=== PATIENT | female | born 1965 | race Caucasian/White ===

== ENCOUNTER 2018-12-28 17:28 | Emergency (ER) | payer BC ==
[2018-12-28] MEDS ORDERED: Bacitracin/Neomycin/Polymyxin B Oint 0.9 GM U/D Packet TOP ONE (17:37)
--- NOTE | 2018-12-28 17:56 | EDM.PDOC ---
ED HPI GENERAL MEDICAL PROBLEM - General Chief Complaint: General Stated Complaint: puncture wound from fish hook Time Seen by Provider: 12/28/18 17:30 Source of Information: Reports: Patient, Family History Limitations: Reports: No Limitations - History of Present Illness INITIAL COMMENTS - FREE TEXT/NARRATIVE: Patient is a 53-year-old who is seen today with chief complaint of poking herself with the fishhook patient states that she was minding her own business fishing when she pulled on the hook off her shirt catching her in the right flank area of her abdomen Onset: Today Duration: Hour(s):, Constant Location: Reports: Abdomen Quality: Reports: Ache Severity: Mild Improves with: Reports: Immobilization Worsens with: Reports: Movement Associated Symptoms: Reports: No Other Symptoms Abdomen Pain Score (Numeric/FACES): 5 - Related Data Allergies Allergy/AdvReac Type Severity Reaction Status Date / Time Latex, Natural Rubber Allergy Hives Verified 12/28/18 17:38 peanut Allergy Anaphylactic Verified 12/28/18 17:38 Shock pollen extracts Allergy itchy Verified 12/28/18 17:38 watery eyes Pet Dander Allergy itchy Uncoded 12/28/18 17:38 watery eyes Home Meds: Home Meds Amoxicillin/Potassium Clav [Augmentin 875-125 Tablet] 1 each PO BID 7 Days #14 tablet 12/28/18 [Rx] Aspirin [Halfprin] 81 mg PO DAILY 12/28/18 [History] Cetirizine [ZyrTEC] 10 mg PO DAILY 12/28/18 [History] Empagliflozin [Jardiance] 25 mg PO DAILY 12/28/18 [History] Insulin Glarg,Human.Rec.Analog [Lantus Solostar] 70 unit SUBCUT BEDTIME [History] Lisinopril/Hydrochlorothiazide [Lisinopril-Hctz 20-25 mg Tab] 1 tab PO DAILY 09/12 [History] Metoprolol Succinate 50 mg PO DAILY 12/28/18 [History] Semaglutide [Ozempic] 0.5 mg SUBCUT Q7D 12/28/18 [History] Simvastatin [Zocor] 40 mg PO BEDTIME 12/28/18 [History] metFORMIN HCl [Metformin HCl] 1,000 mg PO BID 12/28/18 [History] ED ROS GENERAL - Review of Systems Review Of Systems: See Below Constitutional: Reports: No Symptoms HEENT: Reports: No Symptoms Respiratory: Reports: No Symptoms Cardiovascular: Reports: No Symptoms Endocrine: Reports: No Symptoms GI/Abdominal: Reports: No Symptoms : Reports: No Symptoms Musculoskeletal: Reports: No Symptoms Skin: Reports: Other (Patient penetrated her skin with a tremor broke while fishing) Neurological: Reports: No Symptoms Psychiatric: Reports: No Symptoms Hematologic/Lymphatic: Reports: No Symptoms Immunologic: Reports: No Symptoms ED EXAM, GENERAL - Physical Exam Exam: See Below Exam Limited By: No Limitations General Appearance: Alert, WD/WN, No Apparent Distress Ears: Normal External Exam, Normal Canal, Hearing Grossly Normal, Normal TMs Ear Exam: Bilateral Ear: Auricle Normal, Canal Normal, TM normal Nose: Normal Inspection, Normal Mucosa, No Blood Throat/Mouth: Normal Inspection, Normal Lips, Normal Teeth, Normal Gums, Normal Oropharynx, Normal Voice, No Airway Compromise Head: Atraumatic, Normocephalic Neck: Normal Inspection, Supple, Non-Tender, Full Range of Motion Respiratory/Chest: No Respiratory Distress, Lungs Clear, Normal Breath Sounds, No Accessory Muscle Use, Chest Non-Tender Cardiovascular: Normal Peripheral Pulses, Regular Rate, Rhythm, No Edema, No Gallop, No JVD, No Murmur, No Rub GI/Abdominal: Normal Bowel Sounds, Soft, Non-Tender, No Organomegaly, No Distention, No Abnormal Bruit, No Mass Back Exam: Normal Inspection, Full Range of Motion, NT Extremities: Normal Inspection, Normal Range of Motion, Non-Tender, Normal Capillary Refill, No Pedal Edema Neurological: Alert, Oriented, CN II-XII Intact, Normal Cognition, Normal Gait, Normal Reflexes, No Motor/Sensory Deficits Psychiatric: Normal Affect, Normal Mood Skin Exam: Wound/Incision (fish hook injury ) Lymphatic: No Adenopathy ED GENERAL MEDICAL PROCEDURES - Laceration/Wound Repair Abdomen Lac/wound length in cm: 0.5 Appearance: Superficial Distal NVT: Neuro & Vascular Intact, No Tendon Injury Anesthetic Type: Local Local Anesthesia - Lidocaine (Xylocaine): 1% Plain Local Anesthetic Volume: 3cc Skin Prep: Providone-Iodine (Betadine) Exploration/Debridement/Repair: Foreign Material Removed (removed fish hook ) Closed with: Other (no sutures needed ) Course - Vital Signs Last Recorded V/S: Last Vital Signs Temp 97.5 F 12/28/18 17:58 Pulse 79 12/28/18 17:58 Resp 18 12/28/18 17:58 BP 131/67 12/28/18 17:58 Pulse Ox 100 12/28/18 17:58 - Orders/Labs/Meds Meds: Medications Discontinued Medications Generic Name Dose Route Start Last Admin Trade Name Jennifer PRN Reason Stop Dose Admin Diphtheria/Tetanus/Acell Pertussis 0.5 ml 12/28/18 18:10 12/28/18 18:20 Adacel IM 12/28/18 18:11 0.5 ml .ONCE ONE Administration Lidocaine HCl 5 ml 12/28/18 17:36 12/28/18 17:54 Xylocaine-Mpf 1% INJECT 12/28/18 17:37 5 ml ONETIME ONE Administration Neomycin/Polymyxin/Bacitracin 1 each 12/28/18 17:37 12/28/18 17:54 Triple Antibiotic Oint TOP 12/28/18 17:38 1 each ONETIME ONE Administration Departure - Departure Time of Disposition: 17:58 Disposition: Home, Self-Care 01 Clinical Impression: Fishing hook foreign body Qualifiers: Encounter type: initial encounter Qualified Code(s): W45.8XXA - Other foreign body or object entering through skin, initial encounter - Discharge Information Prescriptions: Amoxicillin/Potassium Clav [Augmentin 875-125 Tablet] 1 each PO BID 7 Days #14 tablet Instructions: Amoxicillin; Clavulanic Acid tablets, Puncture Wound, VIS, Diphtheria, Tetanus, and Pertussis (DTaP) - CDC (10/10/2006) Referrals: Lizbeth Fernandez PA-C [Primary Care Provider] - Forms: ED Department Discharge Care Plan Goals: The fish hook was cut and passed through to be removed.
[2018-12-28] MEDS ORDERED: Diphtheria,Pertussis(Acell),Tetanus Vaccine 0.5 ML SDV IM ONE (18:10)
== END 2018-12-28 18:30 | disposition home or self-care (01) ==
LOC: LL.ED 17:28
DX: S30.851A Superficial foreign body of abdominal wall, initial encounter (principal); Z23 Encounter for immunization; Z91.010 Allergy to peanuts; Z91.040 Latex allergy status; Z91.09 Other allergy status, other than to drugs and biological substances; Z79.4 Long term (current) use of insulin; Z79.82 Long term (current) use of aspirin; Z79.899 Other long term (current) drug therapy; W45.8XXA Other foreign body or object entering through skin, initial encounter
CPT/HCPCS: 90471; 90715; 99283; J2001

== ENCOUNTER 2019-09-21 16:49 | Emergency (ER) | payer BC, OTHER ==
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
== END 2019-09-21 17:45 | disposition home or self-care (01) ==
LOC: LL.ED 16:49
DX: S50.311A Abrasion of right elbow, initial encounter (principal); S50.351A Superficial foreign body of right elbow, initial encounter; I10 Essential (primary) hypertension; M19.90 Unspecified osteoarthritis, unspecified site; E11.9 Type 2 diabetes mellitus without complications; E66.9 Obesity, unspecified; M89.49 Other hypertrophic osteoarthropathy, multiple sites; E78.5 Hyperlipidemia, unspecified; J30.9 Allergic rhinitis, unspecified; Z91.09 Other allergy status, other than to drugs and biological substances; Z91.040 Latex allergy status; Z79.82 Long term (current) use of aspirin; Z79.899 Other long term (current) drug therapy; Z79.4 Long term (current) use of insulin; Z77.22 Contact with and (suspected) exposure to environmental tobacco smoke (acute) (chronic); Z71.6 Tobacco abuse counseling; V89.2XXA Person injured in unspecified motor-vehicle accident, traffic, initial encounter; Y92.481 Parking lot as the place of occurrence of the external cause; Y99.0 Civilian activity done for income or pay
CPT/HCPCS: 73070-RT; 99284-25